=== PATIENT | male | born 2000 | race Caucasian/White ===

== ENCOUNTER 2018-09-25 08:41 | Emergency (ER) | payer OTHER, SELFPAY ==
[2018-09-25 08:43] VITALS: BP 124/100; PULSE 98; RESP 14; TEMP 37.6; O2SAT 99; BMI 23.2
--- NOTE | 2018-09-25 09:02 | ED.VISSUMM ---
- ER Visit Summary Date of Service: 09/25/18 Chief Complaint: Abscess History of Present Illness: The patient is a 18 M who states that he has an abscess on his tailbone. Patient states that he had a similar occurrence in high school but it resolved without any treatment. He states that on Saturday he began to feel discomfort. Yesterday he reports seeing a nurse in [place] who placed him on Augmentin and extra strength Motrin. He states that today he is still having pain and is feeling worse. He is never seen a surgeon for this. Physical Examination: Afebrile vital signs stable Gen: Well-nourished well-developed Head: Normocephalic atraumatic Eyes: Perrl EOMI ENT: TMs clear no rhinorrhea moist mucous membranes Neck: Supple no lymphadenopathy no JVD nontender CVS: Regular rate rhythm no murmurs normal S1-S2 Respiratory: No distress clear to auscultation bilaterally chest nontender Abdomen: Soft nontender nondistended normal bowel sounds no masses Back: Nontender Extremity: Nontender no edema Skin: Normal color no rash there is a pilonidal abscess with minimal surrounding erythema. Neuro: alert orientated ?3 CN II-XII intact normal strength sensation Psych: Normal affect normal mood Emergency Department Course and Treatment: Wound was locally anesthetized using 1% lidocaine. Incision with 11 blade was made. Large pus was expressed. Wound probed for loculations. It was irrigated and then iodoform packing was placed. Patient tolerated procedure well. I will write for the patient have [place] at home for pain. He is already on Augmentin and I will have him continue that. Packing will need to be pulled in 3 days. He may do it himself in the shower or return to the emergency department. I am going to have him follow-up with general surgery. Dr. Laurent is sales agent [employer] service for no doc surgery. Impression: 1. Pilonidal abscess 2. Incision and drainage emergency physician This note was generated with [employer] dictation software. It may contain incorrect words, spelling, and punctuation that were not noted in review of the chart prior to signing ED Disposition - Plan for ED Patient: Disposition: Home or Assisted Living Prescriptions: Hydrocodone Bitart/Apap 5-325 [[place] 5MG-325MG] 1 tab PO Q6H PRN PRN 3 Days #12 tab PRN Reason: Pain Referrals: Romaine Laurent MD [STAFF PHYSICIAN] - (call to arrange follow up next week) Additional Instructions: Return to Emergency department if worsening or concerns Packing needs to be removed in 3 days. You can do it yourself in the shower or you may return to emergency to have that done as it will be on Saturday Please continue the Augmentin.
[2018-09-25 10:26] VITALS: BP 114/52; PULSE 82; RESP 16; O2SAT 100
[2018-09-25] MEDS: HYDROcodone Bitartrate/Apap 5/325 Tablet PO (10:26)
== END 2018-09-25 10:42 | disposition home or self-care (01) ==
PROVIDERS: Emergency Provider Emergency Medicine; Family Provider Pediatrics; PCP Pediatrics
DX: L05.01 Pilonidal cyst with abscess (principal)
CPT/HCPCS: 10060; 99284

== ENCOUNTER → 2019-11-25 14:58 | Outpatient (CLI) | payer OTHER, SELFPAY ==
[2019-10-05 13:12] VITALS: BMI 23.2
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
== END ==
PROVIDERS: PCP Pediatrics; Referring Provider Physician Assistant; Visit Provider Physician Assistant
DX: S89.92XA Unspecified injury of left lower leg, initial encounter (principal)
CPT/HCPCS: 73564